=== PATIENT | male | born 1980 | race Caucasian/White ===

== ENCOUNTER 2020-08-02 08:02 | Day surgery (SDC) | payer BC, MEDICAID ==
[~2020-08-02 08:02] MED LIST: Lactated Ringers 1,000 ML IV SCH; Sodium Chloride 0.9% 10 ML Syringe FLUSH PRN
[2020-08-02] MEDS ORDERED: Propofol 200 MG/20 ML SDV IV ONE (08:03)
[2020-08-02] MEDS ORDERED: Midazolam 1 MG/ML 2 ML SDV IV ONE (08:03)
--- NOTE | 2020-08-02 10:23 | PCM.OPNOTE ---
- General Post-Op/Procedure Note Date of Surgery/Procedure: 08/02/20 Operative Procedure(s): c scope with biopsy Findings: ascending colon polyp Pre Op Diagnosis: diarrhea Post-Op Diagnosis: ascending colon polyp Anesthesia Technique: MAC Primary Surgeon: Juan Hawthorne Anesthesia Provider: Nathaly Page Pathology: colon polyp random biopsy Complications: None Condition: Good Free Text/Narrative:: see dictation
[2020-08-02 10:46] VITALS: BP 132/85; PULSE 74
--- NOTE | 2020-08-02 13:59 | OR ---
DATE OF OPERATION: 08/02/2020 SURGEON: Juan Hawthorne MD PROCEDURE PERFORMED: Colonoscopy with cold forceps biopsy. PREOPERATIVE DIAGNOSIS: History of diarrhea, crampy abdominal pain. POSTOPERATIVE DIAGNOSIS: Ascending colon polyp. INDICATIONS FOR PROCEDURE: This is a 40-year-old white male, referred with a history of crampy abdominal pain and diarrhea. He was offered and accepted colonoscopy. DESCRIPTION OF OPERATION: After an excellent IV sedation was administered, digital rectal exam was performed. No marked abnormality was noted. The flexible colonoscope was inserted and advanced to the cecum. The prep demonstrated areas of particulate stool, some of that having the appearance of corn or peas. We were able to get a good generalized overall view of the colon, but small areas may have been missed. Attempts to intubate the terminal ileum were unsuccessful. The following findings were noted: Ascending colon, in the area just proximal to the ileocecal valve, there was a small adenomatous- appearing polyp, biopsied with cold biopsy forceps and sent for permanent. The remainder of the mucosa was unremarkable; random biopsies were taken. Transverse colon, unremarkable; random biopsies were taken. Descending colon, unremarkable; random biopsies were taken. Sigmoid and rectum, unremarkable; random biopsies were taken. The patient tolerated the procedure well. Results will be sent via letter. /[id number] /MODL
== END 2020-08-02 10:57 | disposition home or self-care (01) ==
LOC: FB.SDS 08:02
PROVIDERS: ATTEND Surgery
DX: D12.2 Benign neoplasm of ascending colon (principal); I10 Essential (primary) hypertension; K21.9 Gastro-esophageal reflux disease without esophagitis; Z88.8 Allergy status to other drugs, medicaments and biological substances; Z79.899 Other long term (current) drug therapy
CPT/HCPCS: 00811-QZ; 88305; J2250; J2704; J7120

== ENCOUNTER 2024-07-04 07:01 | Day surgery (SDC) | payer BC ==
[~2024-07-04 07:01] MED LIST changes: -Lactated Ringers 1,000 ML IV SCH
[2024-07-04] MEDS ORDERED: Propofol 200 MG/20 ML SDV IV ONE (07:02)
[2024-07-04] MEDS ORDERED: Phenylephrine 0.5% Nasal Spray 15 ML Bot NAS ONE (07:02)
[2024-07-04] MEDS ORDERED: Midazolam 1 MG/ML 2 ML SDV IV ONE (07:02)
[2024-07-04] MEDS ORDERED: Lidocaine 2% 100 MG/5 ML Syringe IVPUSH ONE (07:02)
[2024-07-04] MEDS: Lactated Ringers 1,000 ML IV SCH (07:55)
[2024-07-04] MEDS: Simethicone Drops 40 MG/0.6 ML 30 ML Bottle ONE (08:03)
[2024-07-04 09:44] VITALS: BP 119/69; PULSE 75
== END 2024-07-04 09:30 | disposition home or self-care (01) ==
LOC: FB.SDS 07:01
PROVIDERS: ATTEND Surgery
DX: D12.2 Benign neoplasm of ascending colon (principal); Z86.010 Personal history of colon polyps; I10 Essential (primary) hypertension; E78.5 Hyperlipidemia, unspecified; Z79.899 Other long term (current) drug therapy; Z88.5 Allergy status to narcotic agent; Z88.8 Allergy status to other drugs, medicaments and biological substances
CPT/HCPCS: 00811; 45384; 88305; A9270; J2250; J2704; J7120